=== PATIENT | male | born 1970 | race Caucasian/White ===

== ENCOUNTER → 2020-02-03 07:35 | Outpatient (CLI) | payer BC, SELFPAY ==
--- NOTE | 2020-02-03 07:42 | US_ITS ---
PROCEDURE: US ABDOMEN LIMITED CLINICAL INDICATION: RUQ ABD PAIN COMPARISON: No exams were available for comparison FINDINGS: PANCREAS: Pancreas is not well delineated due to overlying bowel gas. CT or MRI without and with contrast with pancreatic protocol may provide further evaluation if clinically desired. LIVER: No focal liver lesions demonstrated. Homogeneous echogenicity. No intrahepatic biliary ductal dilatation evident. There is appropriate direction of blood flow within a non dilated portal vein. Fatty liver RIGHT KIDNEY: Unremarkable. Normal size and echogenicity. No hydronephrosis GALLBLADDER: No gallstones, gallbladder wall thickening, pericholecystic fluid, or biliary dilatation. IMPRESSION: Pancreas is not well delineated due to overlying bowel gas. CT or MRI without and with contrast with pancreatic protocol may provide further evaluation if clinically desired. Fatty liver No gallstones or other significant anomalies Dictated by: Renan House MD 02/03/2020 17:34 Renan House MD in [place] 02/03/2020 17:34
== END ==
PROVIDERS: PCP Family Medicine; Visit Provider Family Medicine
DX: R10.11 Right upper quadrant pain (principal)
CPT/HCPCS: 76705

== ENCOUNTER → 2020-02-14 16:44 | Outpatient (CLI) | payer BC, SELFPAY ==
[2020-02-14 17:47] LABS: Alanine Aminotransferase 53 U/L (12-78); Albumin Level 4.5 g/dl (3.5-5.0); Alkaline Phosphatase 57 U/L (38-126); Amylase 69 U/L (30-110); Aspartate Amino Transferase 39 U/L (17-59); Bilirubin,Direct 0.1 mg/dl (0.0-0.4); Bilirubin,Indirect 0.5 mg/dL (0.0-0.9); Bilirubin,Total 0.6 mg/dl (0.2-1.3); Bilirubin,Unconjugated 0.5 mg/dL (0.0-1.1); Blood Urea Nitrogen 9 mg/dl (9-20); Estimated Glomerular Filt Rate 176 ml/min (>60); GFR (African American) 213 ML/MIN (>60); Lipase 532 U/L (23-300); Total Protein,Serum 7.5 g/dl (6.3-8.2)
== END ==
PROVIDERS: Visit Provider Family Medicine
DX: R10.11 Right upper quadrant pain (principal); R74.8 Abnormal levels of other serum enzymes
CPT/HCPCS: 36415; 80076; 82150; 82565; 83690; 84520

== ENCOUNTER → 2020-02-18 10:32 | Outpatient (CLI) | payer BC, SELFPAY ==
--- NOTE | 2020-02-18 10:35 | CT_ITS ---
PROCEDURE: CT ABDOMEN PELVIS W CON CLINICAL INDICATION: RUQ ABD PAIN, ELEVATED LIPASE COMPARISON: No exams were available for comparison TECHNIQUE: IV Contrast: 75ML OPTIRAY 350 Oral Contrast 20ml Gastroview Axial images obtained with sagittal and coronal reformats. All CT scans at the facility use one or more dose reduction, viz: automated exposure control, ma/kV adjustment per patient size (including targeted exams where dose is matched to indication, i.e. head), or iterative reconstruction technique. FINDINGS: Lower thorax: No acute finding, the lower lung baker are clear of infiltrate. There is a calcified granuloma right posterior gutter. Cardiac size is normal. ABDOMEN: Liver: The liver is normal in size, there is mild diffuse fatty infiltration noted. There are no focal lesions. Gallbladder: Nondistended. No radio opaque stones. Pancreas: No masses or peripancreatic fluid collections. There are no peripancreatic inflammatory changes noted. Spleen: unremarkable Adrenals: unremarkable Kidneys/ureters: The kidneys are normal in size and show symmetrical function both appearing normal. ABDOMEN & PELVIS: Stomach bowel: The stomach is normal. There is mild dilatation of the duodenal sweep and there is mildly dilated fluid-filled proximal small bowel loops noted. The mid and distal small bowel loops appear normal. There is scattered stool and gas seen throughout the colon. There is mild diffuse diverticulosis of the lower descending and sigmoid colon without evidence of diverticulitis. Peritoneum: No abnormal fluid collections. No obvious inflammatory changes. No free air. Lymph nodes: No enlarged lymph nodes apparent. There are few small nodes right lower quadrant. Vasculature: No evidence of abdominal aortic aneurysm. No retroperitoneal hemorrhage evident. Bones: There are mild degenerate changes at the L4-5 and L5-S1 levels. PELVIS: Reproductive: unremarkable Bladder: The bladder is decompressed, the prostate is normal in size several calcifications. Appendix: There are no findings to suggest appendicitis. IMPRESSION: 1. Diffuse hepatic steatosis 1. Mildly dilated fluid-filled loops of proximal small bowel suggesting some degree of enteritis 2. Mild diffuse diverticulosis lower descending and sigmoid colon without diverticulitis Dictated by: Dr. Berto Jimenez MD 02/18/2020 11:36 Dr. Berto Jimenez MD in [place] 02/18/2020 11:36
== END ==
PROVIDERS: PCP Family Medicine; Visit Provider Family Medicine
DX: R10.11 Right upper quadrant pain (principal); R74.8 Abnormal levels of other serum enzymes
CPT/HCPCS: 74177; Q9967

== ENCOUNTER → 2021-03-14 17:41 | Outpatient (CLI) | payer BC, SELFPAY | PROVIDERS: PCP Family Medicine; Visit Provider Nurse Practitioner | DX: Z20.822 Contact with and (suspected) exposure to COVID-19 (principal) | CPT/HCPCS: C9803; U0003; U0005 ==

== ENCOUNTER → 2022-11-12 15:40 | Outpatient (POV) | payer BC, SELFPAY | PROVIDERS: Visit Provider Dermatology | DX: Z00.00 Encounter for general adult medical examination without abnormal findings (principal) ==

== ENCOUNTER 2024-01-24 09:17 | Emergency (ER) | payer BC, SELFPAY ==
[2024-01-24 09:25] VITALS: BP 169/90; PULSE 71; RESP 20; TEMP 36.8; O2SAT 98; BMI 33.5
[2024-01-24] MEDS: TET/DIPHTH/PERT-ADULT 0.5ML SYRINGE 0.5 ML IM (09:40)
--- NOTE | 2024-01-24 09:46 | ED_ITS ---
Discharge Plan Disposition Patient Disposition: Home, Self-Care Condition: Good Prescriptions Prescriptions: New doxycycline hyclate 100 mg capsule 100 mg PO BID Qty: 20 0RF mupirocin 2 % ointment 1 applic topical BID Qty: 15 0RF Referrals Follow up/Referrals: Bhavesh Epstein MD [Primary Care Provider] - See instructions Clinical Impressions Clinical Impression: Puncture wound Instructions Patient Instructions: DI for Puncture Wound Print Language Print Language: Setswana Discharge ED [facility]Brenda [facility] [place] HPI General Stated complaint: AO 01/23/24 stuck left foot with charla wire Mode of Arrival: Ambulatory Source of Information: Patient Limitations: No Limitations Time Seen by Provider: 01/24/24 09:46 Description of Symptoms (Recalled from Triage Doc. by RN): PATIENT C/O PUNCTURE TO LEFT HEEL WITH A CHARLA PIECE OF WIRE YESTERDAY. PATIENT NEEDS TDAP AND IS DIABETIC HEENT Symptoms (Recalled from RN notes): No Resp Symptoms (Recalled from RN notes): No Skin Symptoms (Recalled from RN notes): Yes MS Symptoms (Recalled from RN notes): No Functional Status (Recalled from RN notes): WNL History of Present Illness Provider Complaint: 54 yr old male presents for puncture wound to left heel. pt states yesterday he stepped on an old charla metal wire. did not go though shoe. Related Data Previous Rx's ?Medication ?Instructions ?Recorded doxycycline hyclate 100 mg capsule 100 mg PO BID #20 caps 01/24/24 mupirocin 2 % topical ointment 1 applic topical BID #15 grams 01/24/24 Allergies Allergy/AdvReac Type Severity Reaction Status Date / Time Penicillins Allergy Verified 01/24/24 09:34 Worker's Comp Is this a Worker's Comp case?: No [facility] Disclaimer: The information contained in this section may have been updated after the patient was seen, as this information can be updated by other users. Medical History , SENIOR GROUP MANAGER) Diabetes mellitus, type 2 Surgical History , SENIOR GROUP MANAGER) History of back surgery History of knee surgery History of tonsillectomy Social History , SENIOR GROUP MANAGER) Smoking Status: Current every day smoker alcohol intake: current current occupational status: employed Travel in the last 8 weeks: None ROS Obtained: Yes All systems reviewed & no additional complaints except as documented Constitutional Constitutional: Reports system reviewed and no additional complaints, except as documented Eyes Eyes: Reports system reviewed and no additional complaints, except as documented ENT Ears, Nose, Mouth, and Throat: Reports system reviewed and no additional complaints, except as documented Cardiovascular Cardiovascular: Reports system reviewed and no additional complaints, except as documented Respiratory Respiratory: Reports system reviewed and no additional complaints, except as documented Gastrointestinal Gastrointestingal: Reports system reviewed and no additional complaints, except as documented Musculoskeletal Musculoskeletal: Reports system reviewed and no additional complaints, except as documented Integumentary/Breasts Skin/Breast: Reports system reviewed and no additional complaints, except as documented, Reports as per HPI and Reports other Neurologic Neurologic: Reports system reviewed and no additional complaints, except as documented Endocrine Endocrine: Reports system reviewed and no additional complaints, except as documented Hematologic/Lymphatic Henatologic/Lymphatic: Reports system reviewed and no additional complaints, except as documented Allergic/Immunologic Allergic/Immunologic: Reports system reviewed and no additional complaints, except as documented Physical Exam General General appearance: alert and in no apparent distress Eye Eye exam: Present normal appearance ENT ENT exam: Present normal exam Respiratory Respiratory exam: Present normal lung sounds bilaterally Cardiovascular Cardiovascular exam: Present regular rate and normal rhythm Expanded Lower Extremity Exam Left: Leg image: 2 1. puncture wound Neurological Exam Neurological exam: Present alert and oriented X3 Skin Skin exam: Present warm, intact and other Medical Decision Making Medical Records Medical records reviewed: Yes I reviewed the patient's medical records. Mariano Inquiry Pt receiving controlled substance: No Mariano was queried for this patient: No Vital Signs: 01/24/24 09:25 Temperature 98.2 F Temperature Source Oral Pulse Rate [Left Brachial] 71 Respiratory Rate 20 Blood Pressure [Left Arm] 169/90 H Blood Pressure Mean [Left Arm] 116 Blood Pressure Source [Left Arm] Automatic Cuff Blood Pressure Position [Left Arm] Sitting 02 Sat by Pulse Oximetry 98 Oxygen Delivery Method Room Air Orders (Tests/Meds): ED MEDICATIONS Generic Name Dose Route Start Last Admin Trade Name Freq PRN Reason Stop Dose Admin Tetanus/Reduced Diphtheria/Acell Pertussis 0.5 ml 01/24/24 09:34 01/24/24 09:40 Tet/Diphth/Pert-Adult 0.5ml Syringe IM 01/24/24 09:35 0.5 ml .ONCE ONE Administration
[2024-01-24 10:01] VITALS: BP 169/90; PULSE 71; RESP 20; TEMP 36.8; O2SAT 98
== END 2024-01-24 10:02 | disposition home or self-care (01) ==
PROVIDERS: Emergency Provider Nurse Practitioner Family; PCP Family Medicine
DX: S91.332A Puncture wound without foreign body, left foot, initial encounter (principal); W45.8XXA Other foreign body or object entering through skin, initial encounter; Z23 Encounter for immunization
CPT/HCPCS: 90471; 90715; 99204; 99212; G0463

== ENCOUNTER 2024-04-09 07:47 | Outpatient (CLI) | payer SELFPAY ==
--- NOTE | 2024-04-09 07:52 | CT_ITS ---
APPROVED REPORT Counter Stitcher: CLINICAL INDICATION Risk stratification TECHNIQUE Image Acquisition: A 128 slice MDCT scanner (Codacya View) was used for data acquisition. A noncontrast coronary calcium scan was performed. A CT attenuation threshold of 130 Hounsfield units (HU) was used for the detection of calcium in contiguous voxels of 1 sq mm in area to be counted as individual lesions. A tube voltage of 120 KVp was used. The patient received no medications prior to the coronary calcium CT. Image Reconstruction Transaxial images were reconstructed at 0.67 mm slide thickness. Data was reviewed interactively on an advanced workstation capable of 2 and 3-dimensional displays in all conventional reconstruction formats, including multiplanar reformations, maximum intensity projections, curved multiplanar reformations, and volume rendered reconstructions. When applicable, selected routine images describing the relevant coronary anatomy and pathology were saved and sent to PACS. Complications None Technical Quality Overall image quality was good. Total DLP (Dose-Length Product) is 143.9 mGy-cm. The reported value represents the total of one or more individual components during the CT acquisition of this date and at this time, and as such, the same value may appear in more than one CT report depending on the interpreting/reporting physicians. COMPARISON None FINDINGS CT Coronary Calcium Scoring LMA (Left Main Artery) = 3 LAD (Left Anterior Descending) = 8 LCX (Left Coronary Circumflex) = 0 RCA (Right Coronary Artery) = 0 Total Calcium Score = 11 using the AJ-130 method. There is no identifiable calcification in the aortic valve, mitral annulus or mitral valve, pericardium, or myocardium. IMPRESSION -Coronary artery calcification is present. -Total Calcium Score (Agatston Score) = 11 using the AJ-130 method. -The observed calcium score of 11 is at 57th percentile for subjects of the same age, sex, and race/ethnicity. The interpretation of the calcium heart score is based on the following continuum*: 0 = no calcified plaque detected (risk of coronary artery disease is very low ??? less than 5%) 1-10 = calcium detected in extremely minimal levels (risk of coronary diseases is still low ??? less than 10%) 11-100 = mild levels of plaque detected with certainty (mild or minimal narrowing of heart arteries is likely) 101-400 = definite,at least moderate levels of plaque detected (relatively high risk of a heart attack within 3-5 years) >401-999 = extensive levels of plaque detected (high risk of heart attack, high levels of vascular disease are present, high likelihood of at least one significant coronary narrowing) *The calcium heart score quantifies the burden of coronary calcification/plaque in the coronary arteries. The calcium heart score does not evaluate the presence or the burden of non-calcified (i.e. soft) plaque. The coronary and cardiac findings of this Coronary Calcium CT were reviewed, reported, and signed by Amari Andrade MD (Tubular Splitting Machine Tender). Conclusion Electronically signed by : Lauren Andrade MD 04/12/2024 12:21:08
== END 2024-04-09 23:59 | disposition home or self-care (01) ==
PROVIDERS: PCP Family Medicine; Visit Provider Family Medicine
DX: I10 Essential (primary) hypertension (principal)
CPT/HCPCS: 75571

== ENCOUNTER 2024-07-15 09:00 | Outpatient (RCR) | payer BC, SELFPAY | END 2024-07-15 23:59 | disposition home or self-care (01) | LOC: PT 09:00 | PROVIDERS: PCP Family Medicine; Visit Provider Orthopaedic Surgery | DX: Z98.890 Other specified postprocedural states (principal); Z96.652 Presence of left artificial knee joint | CPT/HCPCS: 97014; 97016; 97110; 97163; 97530; G0283 ==

== ENCOUNTER 2024-08-10 09:00 | Outpatient (RCR) | payer BC, SELFPAY | END 2024-08-10 23:59 | disposition home or self-care (01) | LOC: PT 09:00 | PROVIDERS: PCP Family Medicine; Visit Provider Orthopaedic Surgery | DX: Z96.652 Presence of left artificial knee joint (principal) | CPT/HCPCS: 97014; 97016; 97110; 97140; 97530; G0283 ==

== ENCOUNTER 2025-05-30 09:08 | Emergency (ER) | payer BC, SELFPAY ==
[2025-05-30] VITALS (8 sets, daily range): BP systolic 143–207; BP diastolic 78–123; PULSE 75–91; RESP 16–18; TEMP 36.9–37; O2SAT 97–99; BMI 33.5
--- NOTE | 2025-05-30 09:34 | PC.NURSE ---
DR RIVERA AT BEDSIDE
--- NOTE | 2025-05-30 09:42 | CT_ITS ---
PROCEDURE INFORMATION: Exam: CT Abdomen And Pelvis With Contrast Exam date and time: 05/30/2025 10:16 AM Age: 55 years old Clinical indication: Abdominal pain; Localized; Left lower quadrant (llq); Additional info: Suprapubic, llq, rlq pain. Appendicitis? TECHNIQUE: Imaging protocol: Computed tomography of the abdomen and pelvis with contrast. Radiation optimization: All CT scans at this facility use at least one of these dose optimization techniques: automated exposure control; mA and/or kV adjustment per patient size (includes targeted exams where dose is matched to clinical indication); or iterative reconstruction. Contrast material: ISOVUE; Contrast volume: 75 ml; Contrast route: IV; COMPARISON: CT ABDOMEN PELVIS W CON 02/18/2020 10:50 AM FINDINGS: Lungs: 2 mm subpleural lymph node in the right anterior lung base. Liver: Normal. No mass. Gallbladder and biliary ducts: Normal. No calcified stones. No ductal dilation. Pancreas: Normal. No ductal dilation. Spleen: Normal. No splenomegaly. Adrenal glands: Normal. No mass. Kidneys and ureters: Normal. No hydronephrosis. Stomach and bowel: Moderate wall thickening involving the sigmoid colon with surrounding fat stranding and fluid likely represents acute diverticulitis. Appendix: No evidence of appendicitis. Intraperitoneal space: No evidence of free air in the abdomen. Vasculature: Unremarkable. No abdominal aortic aneurysm. Lymph nodes: Mildly enlarged cecil hepatis lymph node is seen the largest measuring 1.3 cm. Urinary bladder: Unremarkable as visualized. Reproductive: Unremarkable as visualized. Bones/joints: Unremarkable. No acute fracture. Soft tissues: Unremarkable. IMPRESSION: 1. Moderate wall thickening involving the sigmoid colon with surrounding fat stranding and fluid likely represents acute diverticulitis. No evidence of perforation or abscess. A colonoscopy is recommended to exclude malignancy after the acute episode has subsided. 2. Mildly enlarged cecil hepatis lymph nodes is seen the largest measuring 1.3 cm. 3. 2 mm subpleural lymph node in the right anterior lung base. For patients at low risk (minimal or absent history of smoking and of other known risk factors), no routine follow-up is indicated. For patients at high risk (history of smoking or of other known risk factors), consider optional CT Chest at 12 months. (Reference: Fritz) REFERENCES: Fritz Dale et al. Guidelines for Management of Incidental Pulmonary Nodules Detected on CT Images: From the Fleischner Society 2017. Radiology. 2017;284(1):228-243.
--- NOTE | 2025-05-30 09:43 | HMH.EDGENADL ---
Discharge Plan Disposition Patient Disposition: Home, Self-Care Prescriptions Prescriptions: New naproxen 250 mg tablet 250 mg PO BID PRN (Reason: pain) Qty: 14 0RF metronidazole 500 mg tablet 500 mg PO TID 7 Days Qty: 21 0RF sulfamethoxazole-trimethoprim [Bactrim DS] 800-160 mg tablet 1 tab PO BID 7 Days Qty: 14 0RF No Action metformin 500 mg tablet extended release 24 hr 1,500 mg PO DAILY Referrals Follow up/Referrals: Bhavesh Epstein MD [Primary Care Provider, Medical] - See instructions Roberto Pennington II, MD [Staff Physician, Gastroenterology] - See instructions Armen Yusuf MD [Physician, Pulmonology] - See instructions Activity Restrictions/Add. Instructions Additional Instructions/Restrictions: You were found to have diverticulitis on your CT scan today. I encourage you to take naproxen as needed as prescribed. I am also prescribing antibiotics. Take these as prescribed. I am giving you follow-up with sagger maker, Dr. Pennington as you may need a colonoscopy in the future. I am also giving you follow-up with Dr. Yusuf with our pulmonology team as you were found to have a lung nodule that will need to be followed as well. If you develop any new or worsening symptoms, such as fever, constant and uncontrolled abdominal pain, or if you become concerned for your help for any reason, return to the emergency department for evaluation. Clinical Impressions Clinical Impression: Diverticulitis, Incidental pulmonary nodule Instructions Patient Instructions: DI for Acute Abdominal Pain Print Language Print Language: Estonian Discharge ED Provider: Karson Patton General Adult HPI General Chief complaint: Abdominal Pain Stated complaint: abd pain Time Seen by Provider: 05/30/25 09:34 History of Present Illness HPI narrative: Cody Romo is a 55y male with a history of type 2 diabetes who presents to the emergency department from [facility] for concern for abdominal pain. Patient states that starting yesterday, he has had intermittent episodes of spasms in his pubic area . He states that today, it has become more intense and causes him to double over in pain. He states that the pain is radiating to the right lower quadrant and left lower quadrant. He states that he had to leave work due to the pain. He states that pain comes and goes and he currently only feels mildly sore in the suprapubic area. He denies any dysuria or hematuria. He states that he had a bowel movement this morning without diarrhea or blood. He states that he feels a fullness in his suprapubic area down into his scrotum and penis. He denies any pain or swelling in his scrotum or penis. He denies any abdominal surgeries. He was sent from [facility] due to concern for appendicitis. Related Data Home Medications ?Medication ?Instructions ?Recorded ?Confirmed metformin 500 mg tablet,extended 1,500 mg PO DAILY 05/30/25 05/30/25 release 24 hr Previous Rx's ?Medication ?Instructions ?Recorded metronidazole 500 mg tablet 500 mg PO TID 7 days #21 tabs 05/30/25 naproxen 250 mg tablet 250 mg PO BID PRN pain #14 tabs 05/30/25 sulfamethoxazole 800 1 tab PO BID 7 days #14 tabs 05/30/25 mg-trimethoprim 160 mg tablet (Bactrim DS) Allergies Allergy/AdvReac Type Severity Reaction Status Date / Time Penicillins Allergy Intermediate Rash Verified 05/30/25 08:50 [facility] Disclaimer: The information contained in this section may have been updated after the patient was seen, as this information can be updated by other users. Medical History (Updated 05/30/25 @ 11:54 by Karson Patton MD) Abdominal pain Diabetes mellitus, type 2 Surgical History History of back surgery History of knee surgery History of tonsillectomy Family History Family/Other No significant family history Social History Smoking Status: Never smoker alcohol intake: current current occupational status: employed Travel in the last 8 weeks?: None Have you lived/traveled outside [place] in past 30 days?: No Contact w/someone who lives/traveled outside [place] past 30 days?: No Exposure to someone with infectious disease in past 14 days?: No Do you have a fever (greater than 100.4 F or 38 C)?: No Have you tested positive for COVID-19?: No Exposed to someone with COVID-19 in past 14 days?: No Do you have a sore throat?: No Do you have a cough?: No Do you have any weakness?: No Do you have any diarrhea?: No Are you experiencing any unusual bleeding?: No Do you have any muscle aches/pain?: No Do you have any abdominal pain?: No Are you experiencing loss of taste or smell?: No ROS Obtained: Yes Systems reviewed as appropriate & no additional complaints except as documented Physical Exam General General appearance: alert and in no apparent distress Head Head exam: atraumatic Eye Eye exam: Present normal appearance ENT ENT exam: Present normal external ear exam Neck Neck exam: Present full ROM Chest Chest inspection: Present symmetric chest wall rise Respiratory Respiratory exam: Present normal lung sounds bilaterally; Absent respiratory distress Cardiovascular Cardiovascular exam: Present regular rate and normal rhythm Abdominal Exam Abdominal exam: Present soft, tenderness (LLQ, suprapubic and right lower quadrant tenderness) and guarding (Grimacing with tenderness in the left lower quadrant, suprapubic and right lower quadrants); Absent distention or rigidity exam: Present deferred and normal testicular lie; Absent testicular tenderness, urethral discharge or scrotal swelling Extremities Exam Extremities exam: Present normal inspection Back Exam Back exam: Present normal inspection Neurological Exam Neurological exam: Present alert and oriented X3 Psychiatric Psychiatric exam: Present normal affect Skin Skin exam: Present warm and dry Medical Decision Making Medical Records Screening: Per USPSTF and CDC recommendations, given the prevalence of disease in our region, it is our hospital?s policy to screen for HIV and viral Hepatitis for all patients aged 18 and over and those with ongoing risk factors. Mariano Inquiry Pt receiving controlled substance: No Vital Signs: 05/30/25 09:16 05/30/25 09:42 05/30/25 09:42 Temperature 98.4 F 98.4 F Temperature Source Oral Oral Pulse Rate 83 91 H Pulse Rate [Right] 91 H Respiratory Rate 18 18 Blood Pressure 207/97 H 207/97 H Blood Pressure [Right Arm] 207/97 H Blood Pressure Mean [Right Arm] 133 Blood Pressure Source Automatic Cuff Blood Pressure Source [Right Arm] Automatic Cuff Blood Pressure Position Supine Blood Pressure Position [Right Arm] Supine 02 Sat by Pulse Oximetry 98 98 98 Oxygen Delivery Method Room Air Room Air Room Air 05/30/25 10:00 05/30/25 10:31 05/30/25 11:01 Temperature Temperature Source Pulse Rate 78 75 87 Pulse Rate [Right] Respiratory Rate Blood Pressure 165/94 H 145/123 H 143/78 H Blood Pressure [Right Arm] Blood Pressure Mean [Right Arm] Blood Pressure Source Blood Pressure Source [Right Arm] Blood Pressure Position Blood Pressure Position [Right Arm] 02 Sat by Pulse Oximetry 98 98 97 Oxygen Delivery Method Room Air Room Air Lab Data Lab Results 05/30/25 09:16: Urine Color Yellow, Urine Appearance Clear, Urine pH 5.5, Ur Specific [place] >= 1.030, Urine Protein Negative, Urine Glucose (UA) 3+, Urine Ketones 1+, Urine Blood Negative, Urine Nitrate Negative, Urine Bilirubin Negative, Urine Urobilinogen 0.2, Ur Leukocyte Esterase Negative, Urine RBC None, Urine WBC None, Ur Squamous Epith Cells None, Urine Bacteria None 05/30/25 09:34: WBC 11.5 H, RBC 5.51, Hgb 16.8, Hct 47.3, MCV 85.8, MCH 30.5, MCHC 35.5 H, RDW 12.6, Plt Count 179, MPV 11.8 H, Neut % (Auto) 80.0, Lymph % (Auto) 12.1, [place] % (Auto) 6.9, Eos % (Auto) 0.3, Baso % (Auto) 0.5, Neut # (Auto) 9.2 H, Lymph # (Auto) 1.4, [place] # (Auto) 0.8, Eos # (Auto) 0.0, Baso # (Auto) 0.1, Sodium 133 L, Potassium 4.0, Chloride 101, Carbon Dioxide 25, Anion Gap 11.0, BUN 9, Creatinine 0.60 L, Estimated Creat Clear 214, Estimated GFR 140, Est GFR ( Amer) 169, Glucose 236 H, Lactate 2.1, Calcium 9.0, Total Bilirubin 1.2, AST 33, ALT 41, Alkaline Phosphatase 65, C-Reactive Protein 33.9 H, Total Protein 8.1, Albumin 4.9, Globulin 3.2, Albumin/Globulin Ratio 1.5, Lipase 335 H, HCV Ab LAURENCE w/Rflx PCR Qn Negative, HIV Ag/Ab Combo Qual Negative 05/30/25 09:34 05/30/25 09:34 Orders (Tests/Meds): ED MEDICATIONS Generic Name Dose Route Start Last Admin Trade Name Freq PRN Reason Stop Dose Admin Sodium Chloride 10 ml 05/30/25 10:14 05/30/25 10:15 Sodium Chloride 0.9% 10ml Syr (Rad Only) IV 06/29/25 10:13 10 ml NEEDED PRN Administration Maintain IV Site Discontinued Medications Generic Name Dose Route Start Last Admin Trade Name Freq PRN Reason Stop Dose Admin Iopamidol 75 ml 05/30/25 10:14 05/30/25 10:15 Iopamidol-370 (76%);100ml Bottle IV 05/30/25 10:15 75 ml ONCE ONE Administration Ketorolac Tromethamine 15 mg 05/30/25 11:45 05/30/25 11:56 Ketorolac 15mg/Ml Vial IV 05/30/25 11:46 15 mg ONCE ONE Administration ORDERS Category Date Time Status CT abdomen pelvis w con Stat Cat Scan 05/30/25 09:42 Completed CBC w/Auto Diff [Complete Blood Count Auto Diff] Stat Lab 05/30/25 09:34 Completed CMP [Comprehensive Metabolic Panel] Stat Lab 05/30/25 09:34 Completed CRP [C-Reactive Protein] Stat Lab 05/30/25 09:34 Completed HIV Combo Stat Lab 05/30/25 09:34 Completed Hepatitis C Ab Qual. W/ RFX Stat Lab 05/30/25 09:34 Completed Lactic Acid Stat Lab 05/30/25 09:34 Completed Lipase Stat Lab 05/30/25 09:34 Completed UA [Urinalysis and Microscopic] Stat Lab 05/30/25 09:16 Completed Medical Decision Narrative: Cody Romo is a 55y male with a history of type 2 diabetes who presents to the emergency department from [facility] for concern for abdominal pain. Patient states that starting yesterday, he has had intermittent episodes of spasms in his pubic area . He states that today, it has become more intense and causes him to double over in pain. He states that the pain is radiating to the right lower quadrant and left lower quadrant. He states that he had to leave work due to the pain. He states that pain comes and goes and he currently only feels mildly sore in the suprapubic area. He denies any dysuria or hematuria. He states that he had a bowel movement this morning without diarrhea or blood. He states that he feels a fullness in his suprapubic area down into his scrotum and penis. He denies any pain or swelling in his scrotum or penis. He denies any abdominal surgeries. He was sent from [facility] due to concern for appendicitis. On arrival, patient is hemodynamically stable, in no acute distress, breathing comfortably on room air with appropriate oxygen saturation. Physical exam, as stated above, revealed a nontoxic-appearing male in no distress. He has suprapubic, left lower quadrant and right lower quadrant tenderness with grimacing with palpation. No rigidity/peritonitis. No abdominal distention. Negative heeltap sign. Negative obturator sign. Scrotal exam with normal testicular lie, no scrotal swelling or testicular tenderness. No penile discharge or swelling. Differential diagnosis includes, but is not limited to: Appendicitis, bladder spasm/UTI, diverticulitis, colitis, acute pancreatitis, among others. Low concern for testicular torsion based on reassuring physical exam. The most morbid conditions were considered and workup was based on these. Workup in the emerged department included: CT abdomen pelvis with IV contrast, hematologic labs, urine studies. Patient states that his pain is very minimal at this time and does not wish to have pain medication. Patient laboratory workup shows mild leukocytosis of 11.5 with 80% neutrophils. Hemoglobin and hematocrit within normal limits. Platelets within normal limits. Chemistry shows mild hyponatremia at 133 but electrolytes otherwise within normal limits and nonactionable. No SILVER. Glucose is elevated 236, consistent with his diagnosis of diabetes. Lactate normal at 2.1. Liver enzymes and bilirubin within normal limits. Lipase mildly elevated at 335, however appears to be chronically elevated and is not 3 times the upper limit of normal. Unlikely to represent acute pancreatitis. Urinalysis without blood or evidence of infection. CT BG was interpreted by me personally. No evidence of appendicitis. There is evidence of diverticulitis without perforation or abscess. Mildly enlarged cecil hepatis lymph nodes. There is a 2 mm subpleural lymph node in the right anterior lung base. See radiology report for details. On reassessment, patient reports some pain at this time describing it as a spasm. Will miss her 50 mg of IV Toradol. I do feel that his symptomatology is best explained by diverticulitis. I do feel he is appropriate discharge at this time with outpatient antibiotics. He is allergic to penicillin. Will prescribe 7-day course of Bactrim and Flagyl. Will also send naproxen for continued pain. Will give him referral to Dr. Pennington with gastroenterology as well as Dr. Yusuf with pulmonology due to the incidental lung nodule. I discussed this with patient and family bedside and he was in agreement with this plan. Return precautions were given. All questions were answered. He demonstrated understanding and was in agreement this plan. He was then discharged from the emergency department in stable condition. Critical Care Critical Care Time Critical Care Time: No
[2025-05-30 09:54] LABS: Hematocrit 47.3 % (42.0-52.0); Hemoglobin 16.8 g/dL (14.1-18.0); Immature Granulocytes % 0.2 %; Mean Corpuscular HGB Conc 35.5 g/dL (31.8-35.4); Mean Corpuscular Hemoglobin 30.5 pg (27.0-31.2); Mean Corpuscular Volume 85.8 fl (80-94); Nucleated Red Blood Cells % 0 %; Platelet Count 179 K/mm3 (142-424); Red Blood Count 5.51 M/mm3 (4.60-6.20); Red Cell Distribution Width-SD 39.4 fL; White Blood Count 11.5 K/mm3 (4.8-10.8)
[2025-05-30 09:58] LABS: Microscopic, Urine URINE MICROSCOPIC (MICROSCOPIC)
[2025-05-30 10:04] LABS: Albumin Level 4.9 g/dl (3.5-5.0); Chloride 101 mmol/L (98-107); Potassium 4.0 mmoL/L (3.5-5.1); Sodium 133 mmol/L (136-145)
[2025-05-30 10:07] LABS: Bilirubin,Urine Negative (Negative); Color,Urine YELLOW (Yellow); Glucose,Urine (UA) 3+ (Negative); Ketones,Urine 1+ (Negative); Leukocyte Esterase,Urine Negative (Negative); PH,Urine 5.5 (5.0-8.5); Protein,Urine Negative (Negative); Specific Gravity, Urine >= 1.030 (1.005-1.030); Urobilinogen,Urine 0.2 EU/dl (0.2)
[2025-05-30 10:07] LABS: Alanine Aminotransferase 41 U/L (12-78); Albumin/Globulin Ratio 1.5 (1.1-1.8); Alkaline Phosphatase 65 U/L (38-126); Anion Gap 11.0 mEq/L (5-15); Aspartate Amino Transferase 33 U/L (17-59); Bilirubin,Total 1.2 mg/dl (0.2-1.3); Blood Urea Nitrogen 9 mg/dl (9-20); Carbon Dioxide 25 mmol/L (22.0-30.0); Creatinine Clearance Estimated 214 mL/min (50-200); Creatinine,Serum 0.60 mg/dl (0.66-1.25); Estimated Glomerular Filt Rate 140 ml/min (>60); GFR (African American) 169 ML/MIN (>60); Globulin 3.2 g/dL (1.3-3.2); Lipase 335 U/L (23-300); Total Protein,Serum 8.1 g/dl (6.3-8.2)
[2025-05-30 10:08] LABS: Calcium 9.0 mg/dl (8.4-10.2); Glucose 236 mg/dl (74-100)
[2025-05-30 10:13] LABS: C-Reactive Protein 33.9 mg/L (0-4)
[2025-05-30] MEDS: IOPAMIDOL-370 (76%);100ML BOTTLE 75 ML IV (10:15)
[2025-05-30] MEDS: SODIUM CHLORIDE 0.9% 10ML SYR (RAD ONLY) 10 ML IV (10:15)
[2025-05-30 11:04] LABS: Hepatitis C Ab Qual. W/ RFX NEGATIVE (Negative)
[2025-05-30] MEDS: KETOROLAC 15MG/ML VIAL 15 MG IV (11:56)
[2025-05-30 13:45] LABS: Reflex Lactic Add Lactic Reflex
== END 2025-05-30 12:20 | disposition home or self-care (01) ==
PROVIDERS: Emergency Provider Student in an Organized Health Care Education/Training Program; PCP Family Medicine
DX: K57.92 Diverticulitis of intestine, part unspecified, without perforation or abscess without bleeding (principal); R91.1 Solitary pulmonary nodule; E11.9 Type 2 diabetes mellitus without complications; Z79.84 Long term (current) use of oral hypoglycemic drugs; Z88.0 Allergy status to penicillin; E87.1 Hypo-osmolality and hyponatremia
CPT/HCPCS: 74177; 80053; 81001; 83605; 83690; 85025; 86140; 86803; 87389; 96374; 99285; J1885; Q9967